=== PATIENT | female | born 1950 | race Caucasian/White ===

== ENCOUNTER 2018-04-30 06:52 | Day surgery (SDC) | payer MEDICARE ==
[~2018-04-30] VITALS: Ht 167.6 cm; Wt 74.8 kg
--- NOTE | ~2018-04-30 | OP ---
PATIENT NAME: NAVEEN CORADO MEDICAL RECORD: [id number] :52 LOCATION:[facility] ADMISSION DATE: SURGEON: VIRAJ MUÑOZ MD DATE OF OPERATION: 04/30/2018 REFERRED BY: Dany Blackwell PREOPERATIVE DIAGNOSIS: End-stage renal disease. POSTOPERATIVE DIAGNOSIS: End-stage renal disease. OPERATION PERFORMED: Laparoscopic implantation of peritoneal dialysis catheter. SURGEON: Viraj Muñoz MD ANESTHESIA: General endotracheal per [employer]. PREOPERATIVE NOTE: This 67-year-old white female patient is to begin peritoneal dialysis. She has had no prior abdominal operations and has no clinical abdominal hernias or history of peritonitis or prior operations. DESCRIPTION OF PROCEDURE: Under general endotracheal anesthesia in supine position, she was prepped and draped in sterile manner. The abdomen was entered through a small incision in the left upper quadrant with a 5-degree port and a 5-mm diameter 0-degree laparoscope. The peritoneal cavity was insufflated with carbon dioxide and inspected. There were no adhesions. There were no hernias. There was no evidence of inflammation, and the omentum is very small and high and should not be a problem. I then measured on the anterior abdominal wall with a gooseneck coiled Medcomp dialysis catheter anticipating a right lower quadrant exit site. I made an incision adjacent to the umbilicus and carried this down through adipose tissue to the rectus sheath, where I then inserted the introducer needle at the point I anticipated leaving the deeper of the 2 Dacron felt cuffs. I advanced the needle parallel to the rectus creating an intramuscular and extraperitoneal tunnel directed downwards toward the pelvis. I then passed a guidewire into the peritoneal cavity and over that a dilator peel-away introducer and I then inserted the dual cuff swan neck coil dialysis catheter. This is a right-sided catheter. The deeper of the 2 Dacron felt cuffs was placed within the substance of the rectus muscle and the anterior rectus sheath closed about the catheter with a pursestring suture of 0 Vicryl. The catheter was then brought through a right lateral subcutaneous tunnel and skin exit site. The catheter was irrigated and noted to flow freely in and out. It was then heparin locked. The laparoscopic port was removed after allowing insufflated with carbon dioxide to escape. No additional laparoscopic ports were required. The catheter was fixed to the skin with Mastisol and quarter-inch Steri-Strips and Dermabond glue, dressed with a Biopatch and Tegaderm and then all held in place with a 4 x 4 Medipore dressing. The left upper quadrant incision was closed with interrupted inverted 3-0 Vicryl, Dermabond glue, and dressed with Maxorb Ag and Tegaderm with Cavilon skin prep. The paraumbilical incision was closed with interrupted inverted 3-0 Vicryl after infiltration and irrigation with 0.25% Marcaine without epinephrine. Skin was closed with running intracuticular 4-0 Stratafix and Dermabond glue. It was also dressed with Maxorb Ag, Tegaderm, and Cavilon skin prep. The patient was awakened and extubated, taken to the recovery room in stable condition. OPERATIVE REPORT [id number] NAVEEN CORADO PLAN: The patient will go home today with a prescription for [place] 5/325, #10 and return appointment scheduled for her to see me in my office in about 2 weeks. She will be scheduled for a visit with [facility] peritoneal dialysis nurse specialist in [place] to have her catheter flushed next week and then she can start peritoneal dialysis in 2 weeks. TRANSINT:[id number] Voice Confirmation ID: [id number] DOCUMENT ID: [id number] VIRAJ MUÑOZ MD at 2031 CC: DANY BLACKWELL MD [id number] DICTATION DATE: 04/30/18 1221 [facility]: 04/30/18 1238 [facility] 04/30/18 [facility] [address] [place] [address]
[2018-04-30 07:19] LABS: BASOPHILS 0.6 % (0-2); EOSINOPHILS 3.3 % (0-7); HEMATOCRIT 27.8 % (36.0-48.0); HEMOGLOBIN 9.5 g/dL (12-16); IMMATURE GRANULOCYTES 0.3 % (0-5); MCH 29.1 pg (26.0-34.0); MCHC 34.2 g/dL (31.0-37.0); MCV 85.3 fL (80.0-100.0); MEAN PLATELET VOLUME 8.6 fL (7.4-10.4); MONOCYTES 6.5 % (2-11); NEUTROPHILS 78.3 % (40-80); PLATELET COUNT 169 10x3/uL (130-400); RBC 3.26 10x6/uL (4.00-5.40); RDW 14.2 % (11.5-14.5); WBC 13.2 10x3/uL (4.8-10.8)
[2018-04-30 07:38] LABS: ANION GAP 24.4 mmol/L (8-16); CALCIUM 7.6 mg/dL (8.5-10.1); CARBON DIOXIDE 16.5 mmol/L (21.0-32.0); CREATININE - SERUM 8.5 mg/dL (0.6-1.3); POTASSIUM - SERUM 4.9 mmol/L (3.5-5.1)
[2018-04-30 08:03] LABS: APTT 27.1 SECONDS (22.8-39.4); PROTIME 12.8 SECONDS (11.6-15.0)
[2018-04-30] MEDS ORDERED: ADVAIR HFA [SP]12 GM INH (08:15)
[2018-04-30] MEDS ORDERED: HYDRALAZINE HCL50 MG PO (08:16)
[2018-04-30] MEDS ORDERED: LOPRESSOR I5 MG/5 ML (08:17)
[2018-04-30] MEDS ORDERED: ADALAT CC90 MG PO (08:18)
[2018-04-30] MEDS ORDERED: ALBUTEROL SULF8.5 GM (08:19)
[2018-04-30] MEDS ORDERED: GLIPIZIDE10 MG PO (08:19)
[2018-04-30] MEDS ORDERED: ONGLYZA5 MG PO (08:19)
[2018-04-30] MEDS ORDERED: BAYER CHEWABLE81 MG PO (08:20)
[2018-04-30 08:34] VITALS: BP 132/62; Ht 167.6 cm; Wt 74.8 kg
== END 2018-04-30 14:30 | disposition home or self-care (01) ==
LOC: D.OPS 06:52
PROVIDERS: Surgery
DX: N18.6 End stage renal disease (principal); Z01.812 Encounter for preprocedural laboratory examination